=== PATIENT | female | born 1955 | race Caucasian/White ===

== ENCOUNTER 2018-07-12 10:04 | Emergency (ER) | payer OTHER ==
--- NOTE | 2018-07-12 10:21 | EDPHY ---
H & P Time Seen by Provider: 07/12/18 10:21 HPI/ROS: Chief complaint. Back pain, shortness of breath HPI. 63-year-old female presents emergency department with left posterior shoulder pain that was present upon awakening this morning. She was well last evening. She has no anterior chest discomfort. She feels like she can't take a full deep breath. She has a slight cough the last several days. No fever. Her back pain is not different with breathing or exertion. She does have sense of slight shortness of breath going up stairs. No unusual leg pain or swelling. About 1 month ago the patient was shoveling snow and she developed anterior pressure-type chest discomfort and shortness of breath while shoveling. She went inside sat down and symptoms resolved. Total duration was about 15 min. She has not had any similar symptoms until her back pain slight shortness of breath today. ROS 10 systems were reviewed and negative with the exception of the elements mentioned in the history of present illness Past Medical/Surgical History: Denies hypertension, diabetes, dyslipidemia Family history dad had an MA at age 65 and 85 Social History: , nonsmoker, no alcohol Physical Exam: General Appearance: Alert pleasant well-developed female mild distress vital signs are stable Eyes: Pupils equal and round no pallor or injection. ENT, Mouth: Mucous membranes are moist. Respiratory: There are no retractions, lungs are clear to auscultation. Cardiovascular: Regular rate and rhythm. Gastrointestinal: Abdomen is soft and nontender, no masses, bowel sounds normal. Neurological: Awake and alert, sensory and motor exams grossly normal. Skin: Warm and dry, no rashes. Musculoskeletal: Neck is supple nontender. Patient shows me the location of her pain is to the left side adjacent to about T4. No surface findings. It is not particularly sore or tender to palpation Extremities symmetrical, full range of motion. Psychiatric: Patient is oriented X 3, there is no agitation. Constitutional: Initial Vital Signs Temperature (C) 37.1 C 07/12/18 10:09 Heart Rate 87 07/12/18 10:09 Respiratory Rate 16 07/12/18 10:09 Blood Pressure 151/76 H 07/12/18 10:09 O2 Sat (%) 93 07/12/18 10:09 O2 Delivery Mode Room Air Allergies/Adverse Reactions: No Known Allergies Allergy (Unverified 07/12/18 10:23) Home Medications: Medication Instructions Recorded Synthroid 07/12/18 Medical Decision Making - Diagnostics EKG Interpretation: EKG was interpreted by me is normal Procedures: IV normal saline, monitor ED Course/Re-evaluation: On re-evaluation patient is stable. She and I discussed EKG and laboratory evaluation. We discussed treatment plan including criteria for return and recommendation for follow-up. She expresses understanding and agreement. She is offered admission but feels well to be going home. Differential Diagnosis: Patient has back pain and normal workup. I considered acute coronary syndrome, pulmonary embolus. Patient did have an episode 1 month ago of chest discomfort and shortness of breath shoveling snow that resolved by rest. She and I did discuss follow-up with Cardiology. She is given [facility] name For follow-up. The computer system went down because of weather yesterday before I could give the patient computer generated discharge instructions. I hand wrote the discharge instructions with [facility] phone number. - Data Points Laboratory Results: 07/12/18 10:51 POC Troponin I 0.01 ng/mL ng/mL (0.00-0.08) Point of Care Test Results: CBC CBC Collection Date 07/12/18 CBC Collection Time 10:45 WBC 4.34 RBC 4.67 HGB 14.3 HCT 42.0 PLT 300 Neut # 2.76 Neut 63.6 LYMPH # 1.17 LYMPH 27.0 MCV 89.9 Chemistry 07/12/18 10:51 POC Troponin I 0.01 ng/mL ng/mL (0.00-0.08) D-Dimer D-Dimer Collection Date 07/12/18 D-Dimer Collection Time 10:45 D-Dimer (ng/ml) <100 Departure - Departure Disposition: Home, Routine, Self-Care Clinical Impression: Back pain Qualifiers: Back pain location: thoracic back pain Chronicity: acute Back pain laterality: left Qualified Code(s): M54.6 - Pain in thoracic spine Condition: Good Instructions: Thoracic Back Strain (ED) Additional Instructions: Instructions that were provided to you hand written by me Referrals: SENDY BOBBY [Primary Care Provider] - As per Instructions Argenis Waller MD [Medical Doctor] - 2-3 days, call for appt.
[2018-07-12 18:04] VITALS: BP 126/92
--- NOTE | 2018-07-12 22:53 | EDV ---
[f rep st] EMERGENCY DEPARTMENT REPORT EKG interpretation by me shows normal sinus rhythm with normal interval and axis. QRS is normal. Th ere is no significant ST elevation or depression. There is no arrhythmia. The rate is 77. Our comp uter system is down, and I am unable to pull up any previous EKGs for comparison. Chest x-ray interp reted by me as normal. Laboratory workup shows a normal chem-7, normal CBC, D-dimer is less than 100 , and troponin 0.01. On re-evaluation, patient is stable. She and I discussed imaging, EKG, and lab oratory evaluation. We discussed treatment plan including criteria for return and importance of foll owup and for evaluation. She expresses understanding and agreement. I have given her Dr. Argenis Waller 's name and phone number at [facility] and encouraged her to call today to be re-evaluated in the next 1 to 3 days. MEDICAL DECISION MAKING: Patient really has no risk factors other than family history for early jc nary artery disease. She has posterior back pain in a typical location for muscular type pain. She has no anterior chest discomfort. Her workup including chest x-ray, EKG, laboratory evaluation are n ormal. No evidence for acute coronary syndrome or pulmonary embolus. The patient did have an episod e one month ago of anterior chest pressure and shortness of breath while shoveling snow and better wi th rest. She has not had any subsequent problems. Her presentation today is different than her pres entation one month ago. CLINICAL IMPRESSION: Chest pain. PLAN: Discharge home with Cardiology followup. Handwritten instructions and contact information are written by me and given to the patient. DISCHARGE CONDITION: Good. /[id number]/MODL
--- NOTE | 2018-07-13 21:13 | CPEKG ---
Test Reason : OPEN Blood Pressure : / mmHG Vent. Rate : 077 BPM Atrial Rate : 077 BPM P-R Int : 151 ms QRS Dur : 087 ms QT Int : 386 ms P-R-T Axes : 059 027 048 degrees QTc Int : 437 ms Sinus rhythm Minimal ST elevation, inferior leads Confirmed by Rachelle Chicas ([id number]) on 07/13/2018 9:12:37 PM Referred By: RACHELLE CHICAS Confirmed By:Rachelle Chicas
== END 2018-07-12 12:10 | disposition home or self-care (01) ==
LOC: CED 10:04
DX: M54.6 Pain in thoracic spine (principal); R06.02 Shortness of breath
CPT/HCPCS: 71046-PO; 84484-ER